=== PATIENT | male | born 1960 | race Caucasian/White ===

== ENCOUNTER 2018-01-06 09:04 | Day surgery (SDC) | payer OTHER ==
[2018-01-06] MEDS ORDERED: FENTAnyl 50 MCG/ML VIAL (11:21)
[2018-01-06] MEDS ORDERED: MIDAZOLAM 1 MG/ML 2 ML INJ ×2 (11:21)
== END 2018-01-06 18:44 | disposition home or self-care (01) ==
LOC: GIL 09:04
DX: Z12.11 Encounter for screening for malignant neoplasm of colon (principal); K64.8 Other hemorrhoids
CPT/HCPCS: 45378